=== PATIENT | female | born 1965 | race Caucasian/White ===

== ENCOUNTER 2021-01-21 08:07 | Outpatient (REF) | payer OTHER, SELFPAY ==
--- NOTE | ~2021-01-21 | MM_ITS ---
EXAMINATION: MM DIAGNOSTIC DIGITAL BREAST TOMOSYNTHESIS, BILATERAL US DIAGNOSTIC ULTRASOUND BREAST, LEFT CLINICAL INFORMATION: Due for yearly. Patient notes palpable concern posterior 3:00 left breast for approximately one week. No discharge. History fibrocystic changes. The lifetime risk of breast cancer based on the Tyrer-Cuzick Model is 8%. COMPARISON: Mammography: 12/24/2019, 07/05/2018, 07/20/2017. Bilateral screening ultrasound 12/24/2019, 07/19/2018. TECHNIQUE: Digital breast tomosynthesis is performed in both the craniocaudal and mediolateral oblique views along with computer-aided detection (CAD). Synthesized 2D images are generated from the tomosynthesis. Ultrasound left breast is targeted to the area of palpable concern posterior outer left breast. Patient is able to point to area at time of imaging. Grayscale imaging and color Doppler are performed without and with harmonics. FINDINGS: The breasts are heterogeneously dense, which may obscure small masses (ACR BI-RADS breast composition Category c). Breast tissue composition borders on extremely dense in the bilateral upper outer quadrants. There are chronic fibrocystic changes with multiple round and oval waxing and waning smooth partly obscured masses, consistent with cysts on prior screening ultrasound. The palpable concern posterior outer left breast corresponds to a chronic smooth mass which is slightly increased in size since 2018. There are scattered bilateral benign round calcifications. There is a cyst with peripheral rim calcification again noted anterior upper outer left breast. There is no interval architectural abnormality. No skin thickening. The axilla are unremarkable. Targeted ultrasound left breast demonstrates benign simple cyst at site of palpable concern 3:00 position 7 cm from nipple with overall dimensions 3.3 x 2.2 x 3.1 cm. There are some other smaller simple cysts in the targeted area, and next largest measuring approximately 1.8 x 1.4 cm and the 3rd largest measuring approximately 1.3 x 0.9 cm. There is no solid mass or architectural abnormality. No skin thickening or edema tracking in soft tissue planes. Results are discussed with the patient at time of visit. MM/MM tomosynthesis diagnostic BI IMPRESSION: 1. Chronic fibrocystic changes similar to prior exams. 2. Benign simple cyst at site of palpable concern posterior lateral left breast, 3.3 cm. ASSESSMENT: BI-RADS 2: Benign RECOMMENDATION: Routine annual mammography screening. This patient's information was entered into a reminder system with a target due date for their next mammogram.
== END 2021-01-21 08:08 | disposition home or self-care (01) ==
LOC: HO.MAMMO 08:07
PROVIDERS: Visit Provider Family Medicine
DX: N64.89 Other specified disorders of breast (principal); N60.02 Solitary cyst of left breast
CPT/HCPCS: 76642; 77062; 77066

== ENCOUNTER 2021-01-28 12:23 | Outpatient (REF) | payer OTHER, SELFPAY ==
--- NOTE | ~2021-01-28 | US_ITS ---
EXAMINATION: US SCREENING ULTRASOUND BREAST, BILATERAL CLINICAL INFORMATION: Dense breasts on mammography. Screening ultrasound. Tyrer-Cuzick Score 8%. COMPARISON: Mammography 01/21/2021, targeted left breast ultrasound 01/21/2021, bilateral screening breast ultrasound 12/24/2019. TECHNIQUE: Ultrasound is performed using grayscale imaging and color Doppler. Imaging is performed to include the four quadrants and retroareolar region. Both breasts are imaged. FINDINGS: Right breast: There is no suspicious finding by ultrasound. There is no solid mass or focal architectural abnormality. There are a few scattered simple cysts, largest 8:00 position 4 cm from nipple measuring approximately 2.0 x 1.4 cm. Left breast: There is no suspicious finding by ultrasound. There is no solid mass or focal architectural abnormality. There are scattered simple cysts more numerous than on the right, largest 3:00 position anterior breast measuring approximately 3.2 x 2.0 cm. There is a mildly complicated cyst with peripheral calcification corresponding to mammography 1:00 position measuring approximately 1.3 cm. Preliminary results provided to patient at time of imaging. US/US breast RT complete IMPRESSION: No suspicious findings on screening breast ultrasound. Scattered bilateral cysts. ASSESSMENT: BI-RADS 2: Benign RECOMMENDATION: Routine annual mammography screening. This patient's information was entered into a reminder system with a target due date for their next mammogram.
--- NOTE | ~2021-01-28 | US_ITS ---
EXAMINATION: US SCREENING ULTRASOUND BREAST, BILATERAL CLINICAL INFORMATION: Dense breasts on mammography. Screening ultrasound. Tyrer-Cuzick Score 8%. COMPARISON: Mammography 01/21/2021, targeted left breast ultrasound 01/21/2021, bilateral screening breast ultrasound 12/24/2019. TECHNIQUE: Ultrasound is performed using grayscale imaging and color Doppler. Imaging is performed to include the four quadrants and retroareolar region. Both breasts are imaged. FINDINGS: Right breast: There is no suspicious finding by ultrasound. There is no solid mass or focal architectural abnormality. There are a few scattered simple cysts, largest 8:00 position 4 cm from nipple measuring approximately 2.0 x 1.4 cm. Left breast: There is no suspicious finding by ultrasound. There is no solid mass or focal architectural abnormality. There are scattered simple cysts more numerous than on the right, largest 3:00 position anterior breast measuring approximately 3.2 x 2.0 cm. There is a mildly complicated cyst with peripheral calcification corresponding to mammography 1:00 position measuring approximately 1.3 cm. Preliminary results provided to patient at time of imaging. US/US breast LT complete IMPRESSION: No suspicious findings on screening breast ultrasound. Scattered bilateral cysts. ASSESSMENT: BI-RADS 2: Benign RECOMMENDATION: Routine annual mammography screening. This patient's information was entered into a reminder system with a target due date for their next mammogram.
== END 2021-01-28 12:24 | disposition home or self-care (01) ==
LOC: HO.MAMMO 12:23
PROVIDERS: Visit Provider Family Medicine
DX: R92.2 Inconclusive mammogram (principal)
CPT/HCPCS: 76641

== ENCOUNTER 2022-01-27 11:32 | Outpatient (REF) | payer OTHER, SELFPAY ==
--- NOTE | ~2022-01-27 | US_ITS ---
The EXAMINATION: US SCREENING ULTRASOUND BREAST, BILATERAL CLINICAL INFORMATION: Dense breasts on mammography. Screening ultrasound. Tyrer-Cuzick Score 8%. COMPARISON: Mammography 01/27/2022, 01/21/2021, bilateral screening breast ultrasound 01/28/2021. TECHNIQUE: Ultrasound is performed using grayscale imaging and color Doppler. Imaging is performed to include the four quadrants and retroareolar region. Both breasts are imaged. FINDINGS: Right breast: There is no suspicious finding by ultrasound. There is no solid mass or focal architectural abnormality. There are scattered small incidental cysts present throughout the right breast, largest 11:00 position measuring 1.3 x 1.0 cm. Previously noted cyst 8:00 position 2.0 cm is decreased in size. Left breast: There is no suspicious finding by ultrasound. There is no solid mass or focal architectural abnormality. There are scattered small incidental cysts present throughout the left breast, largest 3:00 position measuring 1.5 x 1.4 cm. This is decreased from prior exam measurement 3.2 x 2.0 cm. Again, there is an incidental cyst with peripheral rim calcification 1:00 position measuring approximately 1.3 cm. US/US breast LT complete IMPRESSION: -Scattered bilateral incidental cysts. -No suspicious findings on screening breast ultrasound. ASSESSMENT: BI-RADS 2: Benign RECOMMENDATION: Routine annual mammography screening. This patient's information was entered into a reminder system with a target due date for their next mammogram.
--- NOTE | ~2022-01-27 | MM_ITS ---
EXAMINATION: MM SCREENING DIGITAL BREAST TOMOSYNTHESIS, BILATERAL CLINICAL INFORMATION: Screening. Asymptomatic. The lifetime risk of breast cancer based on the Tyrer-Cuzick Model is 8%. COMPARISON: Mammography: 01/21/2021, 12/24/2019, 07/05/2018; bilateral screening breast ultrasound 01/28/2021. TECHNIQUE: Digital breast tomosynthesis is performed in both the craniocaudal and mediolateral oblique views along with computer-aided detection (CAD). Synthesized 2D images are generated from the tomosynthesis. FINDINGS: The breasts are heterogeneously dense, which may obscure small masses (ACR BI-RADS breast composition Category c). There is a fibrocystic parenchymal pattern without interval significant mass and no architectural abnormality or abnormal calcifications. Fibrocystic changes outer left breast appear decreased from prior exam. No abnormal calcifications. There is a anterior upper outer left breast with peripheral rim calcification again noted. The axilla and skin contours are unremarkable. MM/MM tomosynthesis screening BI IMPRESSION: No mammographic evidence of malignancy. ASSESSMENT: BI-RADS 2: Benign RECOMMENDATION: Routine annual mammography screening. This patient's information was entered into a reminder system with a target due date for their next mammogram.
--- NOTE | ~2022-01-27 | US_ITS ---
The EXAMINATION: US SCREENING ULTRASOUND BREAST, BILATERAL CLINICAL INFORMATION: Dense breasts on mammography. Screening ultrasound. Tyrer-Cuzick Score 8%. COMPARISON: Mammography 01/27/2022, 01/21/2021, bilateral screening breast ultrasound 01/28/2021. TECHNIQUE: Ultrasound is performed using grayscale imaging and color Doppler. Imaging is performed to include the four quadrants and retroareolar region. Both breasts are imaged. FINDINGS: Right breast: There is no suspicious finding by ultrasound. There is no solid mass or focal architectural abnormality. There are scattered small incidental cysts present throughout the right breast, largest 11:00 position measuring 1.3 x 1.0 cm. Previously noted cyst 8:00 position 2.0 cm is decreased in size. Left breast: There is no suspicious finding by ultrasound. There is no solid mass or focal architectural abnormality. There are scattered small incidental cysts present throughout the left breast, largest 3:00 position measuring 1.5 x 1.4 cm. This is decreased from prior exam measurement 3.2 x 2.0 cm. Again, there is an incidental cyst with peripheral rim calcification 1:00 position measuring approximately 1.3 cm. US/US breast RT complete IMPRESSION: -Scattered bilateral incidental cysts. -No suspicious findings on screening breast ultrasound. ASSESSMENT: BI-RADS 2: Benign RECOMMENDATION: Routine annual mammography screening. This patient's information was entered into a reminder system with a target due date for their next mammogram.
== END 2022-01-27 11:33 | disposition home or self-care (01) ==
LOC: HO.MAMMO 11:32
PROVIDERS: PCP Family Medicine; Visit Provider Family Medicine
DX: Z12.31 Encounter for screening mammogram for malignant neoplasm of breast (principal); N60.01 Solitary cyst of right breast; N60.02 Solitary cyst of left breast
CPT/HCPCS: 76641; 77063; 77067

== ENCOUNTER 2023-02-18 10:41 | Outpatient (REF) | payer OTHER, SELFPAY ==
--- NOTE | ~2023-02-18 | MM_ITS ---
EXAMINATION: MM SCREENING DIGITAL BREAST TOMOSYNTHESIS, BILATERAL CLINICAL INFORMATION: Screening. Asymptomatic. COMPARISON: Mammography: This study is compared with prior exams dating back to 2018. TECHNIQUE: Digital breast tomosynthesis is performed in both the craniocaudal and mediolateral oblique views along with computer-aided detection (CAD). Synthesized 2D images are generated from the tomosynthesis. FINDINGS: The breasts are heterogeneously dense, which may obscure small masses (ACR BI-RADS breast composition Category c). There are no significant masses, abnormal calcifications, or other abnormalities. There is a benign, peripherally calcified, unchanged left breast cysts in the upper outer quadrant of the left breast. There are a few, benign calcifications in each breast. MM/MM tomosynthesis screening BI IMPRESSION: No mammographic evidence of malignancy. ASSESSMENT: BI-RADS BI-RADS 2 - Benign Findings RECOMMENDATION: Routine annual mammography screening. 1 year F/U This examination should not preclude the clinical evaluation of a suspicious palpable abnormality. This patient's information was entered into a reminder system with a target due date for their next mammogram.
== END 2023-02-18 10:42 | disposition home or self-care (01) ==
LOC: HO.MAMMO 10:41
PROVIDERS: PCP Family Medicine; Visit Provider Physician Assistant
DX: Z12.31 Encounter for screening mammogram for malignant neoplasm of breast (principal)
CPT/HCPCS: 77063; 77067

== ENCOUNTER → 2023-02-18 11:00 | Outpatient (BNV) | payer OTHER, SELFPAY | PROVIDERS: PCP Family Medicine; Visit Provider Radiology Diagnostic Radiology | DX: Z12.31 Encounter for screening mammogram for malignant neoplasm of breast (principal) | CPT/HCPCS: 77063; 77067 ==

== ENCOUNTER 2023-03-10 11:52 | Outpatient (REF) | payer OTHER, SELFPAY ==
--- NOTE | ~2023-03-10 | US_ITS ---
EXAMINATION: US BREAST, BILATERAL CLINICAL INFORMATION: Dense breasts screening COMPARISON: 01/27/2022, 01/28/2021. TECHNIQUE: High-resolution grayscale sonography of the bilateral breasts was performed by a technologist with a high frequency linear transducer following a standardized protocol.All 4 quadrants of each breast including retroareolar areas were imaged FINDINGS: LEFT BREAST: There is no suspicious finding by ultrasound. There is no solid mass or focal architectural abnormality. There are scattered small incidental cysts present throughout the left breast, largest 2:00 position measuring 1.5 x 0.8 x 1.1 cm This is decreased from prior exam measurement 1.5 x 2.0 cm. Again, there is an incidental cyst with peripheral rim calcification 1:00 position measuring approximately 1.0 cm, previously 1.3 cm. There is a 0.5 cm cyst at the 11:00 axis, 1 cm from the nipple. RIGHT BREAST: There is no suspicious finding by ultrasound. There is no solid mass or focal architectural abnormality. There are scattered small incidental cysts present throughout the right breast, largest 12:00 position measuring 1.1 x 0.9 cm, previously 1.3 x 1.0 cm. Previously noted 8:00 position 0.6 cm cyst is decreased in size. US/US breast LT complete IMPRESSION: No sonographic evidence of malignancy in either breast. Waxing and waning cysts in both breasts. ASSESSMENT: Left breast: BI-RADS 2 Right breast: BI-RADS 2 RECOMMENDATIONS: Routine annual mammographic screening. BI-RADS 2, benign.
--- NOTE | ~2023-03-10 | US_ITS ---
EXAMINATION: US BREAST, BILATERAL CLINICAL INFORMATION: Dense breasts screening COMPARISON: 01/27/2022, 01/28/2021. TECHNIQUE: High-resolution grayscale sonography of the bilateral breasts was performed by a technologist with a high frequency linear transducer following a standardized protocol.All 4 quadrants of each breast including retroareolar areas were imaged FINDINGS: LEFT BREAST: There is no suspicious finding by ultrasound. There is no solid mass or focal architectural abnormality. There are scattered small incidental cysts present throughout the left breast, largest 2:00 position measuring 1.5 x 0.8 x 1.1 cm This is decreased from prior exam measurement 1.5 x 2.0 cm. Again, there is an incidental cyst with peripheral rim calcification 1:00 position measuring approximately 1.0 cm, previously 1.3 cm. There is a 0.5 cm cyst at the 11:00 axis, 1 cm from the nipple. RIGHT BREAST: There is no suspicious finding by ultrasound. There is no solid mass or focal architectural abnormality. There are scattered small incidental cysts present throughout the right breast, largest 12:00 position measuring 1.1 x 0.9 cm, previously 1.3 x 1.0 cm. Previously noted 8:00 position 0.6 cm cyst is decreased in size. US/US breast RT complete mammo IMPRESSION: No sonographic evidence of malignancy in either breast. Waxing and waning cysts in both breasts. ASSESSMENT: Left breast: BI-RADS 2 Right breast: BI-RADS 2 RECOMMENDATIONS: Routine annual mammographic screening. BI-RADS 2, benign.
== END 2023-03-10 11:53 | disposition home or self-care (01) ==
LOC: HO.MAMMO 11:52
PROVIDERS: PCP Physician Assistant; Visit Provider Family Medicine
DX: R92.2 Inconclusive mammogram (principal)
CPT/HCPCS: 76641

== ENCOUNTER → 2023-03-10 12:00 | Outpatient (BNV) | payer OTHER, SELFPAY | PROVIDERS: PCP Physician Assistant; Visit Provider Radiology Diagnostic Radiology | DX: N60.01 Solitary cyst of right breast (principal); N60.02 Solitary cyst of left breast | CPT/HCPCS: 76641 ==

== ENCOUNTER 2024-03-01 07:31 | Outpatient (REF) | payer OTHER, SELFPAY ==
--- NOTE | ~2024-03-01 | MM_ITS ---
EXAMINATION: MM SCREENING DIGITAL BREAST TOMOSYNTHESIS, BILATERAL CLINICAL INFORMATION: Screening. Asymptomatic. COMPARISON: Mammography: Comparison is made with available priors TECHNIQUE: Digital breast mammography with tomosynthesis is performed in both the craniocaudal and mediolateral oblique views along with computer-aided detection (CAD). FINDINGS: The breasts are extremely dense, which lowers the sensitivity of mammography (ACR BI-RADS breast composition Category d). Circumscribed oval masses left breast stable dating back to 2021. There are no significant masses, abnormal calcifications, or other abnormalities. MM/MM tomosynthesis screening BI IMPRESSION: No mammographic evidence of malignancy. ASSESSMENT: BI-RADS BI-RADS 2 - Benign Findings RECOMMENDATION: Routine annual mammography screening. 1 year F/U This examination should not preclude the clinical evaluation of a suspicious palpable abnormality. This patient's information was entered into a reminder system with a target due date for their next mammogram. Electronically signed by: Delaney Cardoza DO 03/06/2024 02:00 PM [facility]
== END 2024-03-01 07:32 | disposition home or self-care (01) ==
LOC: HO.MAMMO 07:31
PROVIDERS: PCP Nurse Practitioner Family; Visit Provider Nurse Practitioner Family
DX: Z12.31 Encounter for screening mammogram for malignant neoplasm of breast (principal)
CPT/HCPCS: 77063; 77067

== ENCOUNTER → 2024-03-01 07:45 | Outpatient (BNV) | payer OTHER, SELFPAY | PROVIDERS: PCP Nurse Practitioner Family; Visit Provider Internal Medicine | DX: Z12.31 Encounter for screening mammogram for malignant neoplasm of breast (principal) | CPT/HCPCS: 77063; 77067 ==

== ENCOUNTER 2024-03-08 11:56 | Outpatient (REF) | payer OTHER, SELFPAY ==
--- NOTE | ~2024-03-08 | US_ITS ---
EXAMINATION: US SCREENING ULTRASOUND BREAST, BILATERAL CLINICAL INFORMATION: Dense breasts on mammography. Screening ultrasound. COMPARISON: None available. TECHNIQUE: Ultrasound is performed using grayscale imaging and color Doppler. Imaging is performed to include the four quadrants and retroareolar region. Both breasts are imaged. FINDINGS: LEFT BREAST: There is no suspicious finding by ultrasound. There is no solid mass or focal architectural abnormality. There are scattered small incidental cysts present throughout the left breast, largest 2:00 position measuring 1.5 x 0.8 x 1.1 cm, stable. Again, there is an incidental cyst with peripheral rim calcification 1:00 position measuring approximately 1.0 cm, stable. There is a 0.5 cm cyst at the 11:00 axis, 1 cm from the nipple. RIGHT BREAST: There is no suspicious finding by ultrasound. There is no solid mass or focal architectural abnormality. There are scattered small incidental cysts present throughout the right breast, largest 12:00 position measuring 1.0 x 0.9 cm, previously 1.1 x 0.9 cm. US/US breast BI complete IMPRESSION: No sonographic evidence of malignancy bilateral breasts. Waxing and waning cysts in both breasts again noted. ASSESSMENT: BI-RADS 2 - Benign Findings RECOMMENDATION: 1 year F/U This patient's information was entered into a reminder system with a target due date for their next mammogram. Electronically signed by: Josias Lockhart MD 03/12/2024 11:16 AM [facility]
== END 2024-03-08 11:57 | disposition home or self-care (01) ==
LOC: HO.MAMMO 11:56
PROVIDERS: PCP Nurse Practitioner Family; Visit Provider Nurse Practitioner Family
DX: R92.333 Mammographic heterogeneous density, bilateral breasts (principal)
CPT/HCPCS: 76641

== ENCOUNTER → 2024-03-08 12:00 | Outpatient (BNV) | payer OTHER, SELFPAY | PROVIDERS: PCP Nurse Practitioner Family; Visit Provider Radiology Diagnostic Radiology | DX: N60.11 Diffuse cystic mastopathy of right breast (principal); N60.12 Diffuse cystic mastopathy of left breast | CPT/HCPCS: 76641 ==

== ENCOUNTER 2025-03-18 09:18 | Outpatient (REF) | payer OTHER, SELFPAY ==
--- NOTE | ~2025-03-18 | MM_ITS ---
EXAMINATION: MM SCREENING DIGITAL BREAST TOMOSYNTHESIS, BILATERAL CLINICAL INFORMATION: Screening. Asymptomatic. COMPARISON: Mammography: Comparison is made with available priors TECHNIQUE: Digital breast mammography with tomosynthesis is performed in both the craniocaudal and mediolateral oblique views along with computer-aided detection (CAD). FINDINGS: The breasts are extremely dense, which lowers the sensitivity of mammography. Oval masses in the left breast are stable. There are no significant masses, abnormal calcifications, or other abnormalities. MM/MM tomosynthesis screening BI IMPRESSION: No mammographic evidence of malignancy. ASSESSMENT: BI-RADS Category 2: Benign RECOMMENDATION: Routine annual mammography screening. 1 year F/U This examination should not preclude the clinical evaluation of a suspicious palpable abnormality. This patient's information was entered into a reminder system with a target due date for their next mammogram. Electronically signed by: Delaney Cardoza DO 03/18/2025 06:08 PM [facility]
--- NOTE | ~2025-03-18 | US_ITS ---
EXAMINATION: US SCREENING ULTRASOUND BREAST, BILATERAL CLINICAL INFORMATION: Dense breasts on mammography. Screening ultrasound. COMPARISON: None available. TECHNIQUE: Ultrasound is performed using grayscale imaging and color Doppler. Imaging is performed to include the four quadrants and retroareolar region. Both breasts are imaged. FINDINGS: Right breast: Targeted color Doppler ultrasound demonstrates a oval hypoechoic circumscribed minimally complicated cyst at 12:00 1 cm from the nipple slightly decreased in size from prior ultrasound one year ago and not significantly changed from ultrasound in 2021. Today cyst measures 8 x 9 x 8 mm. Previously labeled 12:00 2 cm from the nipple Otherwise scanning in the upper outer quadrant upper inner quadrant lower inner quadrant lower outer quadrant demonstrates normal fibroglandular breast tissue. Left breast: Targeted color Doppler ultrasound scanning at 1:00 4 cm from the nipple again demonstrates a hypoechoic oval circumscribed minimally complicated cyst versus solid mass at 1:00 4 cm from the nipple measuring 9 x 8 x 7 mm not significantly changed from priors dating back for one year. Previously labeled 1:00 3 cm from the nipple Targeted color Doppler ultrasound at 1:00 4 cm from nipple demonstrates a hypoechoic oval circumscribed minimally complicated cyst versus solid mass measuring 5 x 4 x 6 mm not significantly changed from prior ultrasound one year ago. Previously labeled 2:00 3 cm from the nipple Targeted color Doppler ultrasound scanning at 3:00 11 cm from the nipple demonstrates a hypoechoic oval circumscribed minimally complicated cyst versus solid mass measuring 12 x 8 x 8 mm not significantly changed from prior ultrasound one year ago. Previously labeled 3:00 8 cm from the nipple Otherwise scanning in the upper outer quadrant upper inner quadrant lower inner quadrant lower outer quadrant demonstrates normal fibroglandular breast tissue. US/US breast BI complete IMPRESSION: Right: Minimally complicated cysts not significantly changed dating back to 2021. Benign. Left: Probable minimally complicated cysts not significantly changed on prior ultrasounds dating back for one year. Recommend one-year follow-up ultrasound to demonstrate 2 years of stability. ASSESSMENT: Category 3: Probably benign RECOMMENDATION: 12 month diagnostic follow up This patient's information was entered into a reminder system with a target due date for their next mammogram. Electronically signed by: Delaney Cardoza DO 03/18/2025 06:08 PM [facility] [place]
== END 2025-03-18 09:19 | disposition home or self-care (01) ==
LOC: HO.MAMMO 09:18
PROVIDERS: Visit Provider Nurse Practitioner Family
DX: Z12.31 Encounter for screening mammogram for malignant neoplasm of breast (principal)
CPT/HCPCS: 76641; 77063; 77067

== ENCOUNTER → 2025-03-18 09:30 | Outpatient (BNV) | payer OTHER, SELFPAY | PROVIDERS: Visit Provider Internal Medicine | DX: Z12.31 Encounter for screening mammogram for malignant neoplasm of breast (principal); R92.30 Dense breasts, unspecified | CPT/HCPCS: 76641; 77063; 77067 ==